=== PATIENT | female | born 1980 | race Caucasian/White ===

== ENCOUNTER 2018-05-26 06:12 | Emergency (ER) | payer OTHER, SELFPAY ==
[2018-05-26 06:15] VITALS: BP 155/106; PULSE 124; RESP 18; TEMP 36.7; O2SAT 97; BMI 32.1
--- NOTE | 2018-05-26 06:48 | ED_ITS ---
HPI - Abdominal Pain <Yumiko Marcano DO - Last Filed: 05/27/18 19:41> General Chief Complaint: Abdominal Pain Stated Complaint: abdominal pain Time Seen by Provider: 05/26/18 06:25 Source: patient Mode of arrival: ambulatory Limitations: no limitations History of Present Illness HPI narrative: Patient is a 37-year-old female presenting with abdominal burning and discomfort ongoing since 06/08 this morning. Woke her from her sleep. It radiates up to her chest starting at her umbilical region. No right upper quadrant pain or lower abdominal pain. No painful frequent urination. She was feeling fine yesterday eating drinking and acting normal. Feeling nauseated at times no vomiting. No changes in bowel habits. MD complaint: abdominal pain Onset (ago): hour(s) (5) Pain Consistency: intermittent Location: periumbilical Severity: mild Quality: burning Radiation: chest Relieving factors: nothing Exacerbating factors: nothing Associated symptoms: nausea Related Data Previous Rx's Medication Instructions Recorded amoxicillin-pot clavulanate 1 tab PO BID #20 tab 05/26/18 [Augmentin] hydrocodone-acetaminophen 1 tab PO Q4-6H PRN #10 tab 05/26/18 ondansetron 4 mg PO TID-QID PRN #10 tab 05/26/18 oxycodone 5 mg PO Q4-6H PRN #10 tab 05/26/18 Allergies Allergy/AdvReac Type Severity Reaction Status Date / Time sodium fluoride Allergy Mild Verified 05/26/18 06:52 Review of Systems <Yumiko Marcano DO - Last Filed: 05/27/18 19:41> Review of Systems GENERAL: Denies chills, fatigue, malaise, fever, sweats, travel HEENT: Denies sinus pain, ear pain, sore throat, difficulty swallowing, neck pain RESPIRATORY: Denies dyspnea, cough, wheezing, hemoptysis, sputum. CARDIOVASCULAR: Denies chest pain, palpitations, orthopnea, edema GASTROINTESTINAL: See HPI : Denies dysuria, frequency, incontinence, hematuria, urinary retention, flank pain. MUSCULOSKELETAL: Denies weakness, joint pain, or bony pain SKIN: No rash, no erythema, no pruritus NEUROLOGIC: Denies weakness, dizziness, headache, numbness, change in speech, confusion PSYCHIATRIC: No concerning psychosocial issues. 12 point review of systems is negative except for those stated above and HPI Exam <Yumiko Marcano DO - Last Filed: 05/27/18 19:41> Initial Vital Signs Initial Vital Signs: Vital Signs Temperature 98.1 F 05/26/18 06:15 Pulse Rate 124 H 05/26/18 06:15 Respiratory Rate 18 05/26/18 06:15 Blood Pressure 155/106 H 05/26/18 06:15 Pulse Oximetry 97 05/26/18 06:15 GENERAL: Well-appearing, well-nourished and in no acute distress. HEENT: Head atraumatic,EOMI, pupils reactive, neck is supple no meningeal signs CARDIOVASCULAR: Regular rate and rhythm without murmurs, rubs or gallops. RESPIRATORY: Breath sounds equal bilaterally, no wheezes rales or rhonchi. ABDOMEN: Soft, mild periumbilical pain no guarding no rebound negative Dow sign no lower abdominal discomfort : No CVA tenderness EXTREMITIES: Normal range of motion, no clubbing or edema. Neurovascularly intact NEUROLOGICAL: Alert and oriented x4.Normal gait and speech. Cranial nerves II through XII grossly intact. SKIN: Warm, dry, no laceration, no petechiae, no rashes or lesions. <Elvis Max DO - Last Filed: 05/26/18 10:47> Initial Vital Signs Initial Vital Signs: Vital Signs Temperature 98.1 F 05/26/18 06:15 Pulse Rate 124 H 05/26/18 06:15 Respiratory Rate 18 05/26/18 06:15 Blood Pressure 155/106 H 05/26/18 06:15 Pulse Oximetry 97 05/26/18 06:15 Course <Yumiko Marcano DO - Last Filed: 05/27/18 19:41> Orders Ordered: Discontinued Medications Ketorolac Tromethamine (Toradol) 30 mg IV NOW ONE Stop: 05/26/18 06:41 Last Admin: 05/26/18 06:49 Dose: 30 mg Ondansetron HCl (Zofran) 4 mg IV NOW ONE Stop: 05/26/18 06:41 Last Admin: 05/26/18 06:49 Dose: 4 mg Pantoprazole Sodium (Protonix) 40 mg IV NOW ONE Stop: 05/26/18 06:41 Last Admin: 05/26/18 06:49 Dose: 40 mg Vital Signs - 8 hr 05/26/18 06:15 05/26/18 07:27 05/26/18 07:58 Temperature 98.1 F Pulse Rate 124 H 98 H 92 H Respiratory Rate 18 16 16 Blood Pressure 155/106 H Blood Pressure [Left Arm] 146/101 H 138/86 Pulse Oximetry 97 97 99 05/26/18 09:00 05/26/18 09:39 Temperature Pulse Rate 85 91 H Respiratory Rate Blood Pressure Blood Pressure [Left Arm] 130/84 131/90 Pulse Oximetry 99 97 <Elvis Max DO - Last Filed: 05/26/18 10:47> Course Narrative: patient received in sign out from Dr. Marcano, I've performed an independent history and physical. CT is ordered Orders Ordered: Discontinued Medications Ketorolac Tromethamine (Toradol) 30 mg IV NOW ONE Stop: 05/26/18 06:41 Last Admin: 05/26/18 06:49 Dose: 30 mg Ondansetron HCl (Zofran) 4 mg IV NOW ONE Stop: 05/26/18 06:41 Last Admin: 05/26/18 06:49 Dose: 4 mg Pantoprazole Sodium (Protonix) 40 mg IV NOW ONE Stop: 05/26/18 06:41 Last Admin: 05/26/18 06:49 Dose: 40 mg Vital Signs - 8 hr 05/26/18 06:15 05/26/18 07:27 05/26/18 07:58 Temperature 98.1 F Pulse Rate 124 H 98 H 92 H Respiratory Rate 18 16 16 Blood Pressure 155/106 H Blood Pressure [Left Arm] 146/101 H 138/86 Pulse Oximetry 97 97 99 05/26/18 09:00 05/26/18 09:39 Temperature Pulse Rate 85 91 H Respiratory Rate Blood Pressure Blood Pressure [Left Arm] 130/84 131/90 Pulse Oximetry 99 97 MDM - Abdominal Pain <Yumiko Marcano DO - Last Filed: 05/27/18 19:41> Lab Data Result diagrams: 05/26/18 06:26 05/26/18 06:26 Lab Results 05/26/18 05/26/18 Range/Units 06:26 06:26 WBC 21.3 H (4.5-11.0) X10^3/uL RBC 5.51 H (4.0-5.2) X10^6/uL Hgb 16.4 H (12.0-16.0) g/dL Hct 48.7 H (36-46) % MCV 88.5 (80-100) fL MCH 29.7 (26-34) PG MCHC 33.6 (30-36) % RDW 12.4 (11.6-14.8) % Plt Count 423 H (150-400) X10^3/uL Neut % (Auto) Not Reportable Lymph % (Auto) Not Reportable [place] % (Auto) Not Reportable Eos % (Auto) Not Reportable Baso % (Auto) Not Reportable Lymph # (Auto) Not Reportable [place] # (Auto) Not Reportable Baso # (Auto) Not Reportable Total Counted 100 Seg Neutrophils % 71.0 H (38-70) % Band Neutrophils % 2.0 L (3-7) % Lymphocytes % (Manual) 19.0 L (25-45) % Atypical Lymphs % 3.0 H ( - 0) % Monocytes % (Manual) 2.0 (2-11) % Eosinophils % (Manual) 3.0 (2-4) % Neutrophils # (Manual) 49364 H (2684-5271) /uL RBC Morphology Normal morphology Sodium 139 (137-145) mmol/L Potassium 4.4 (3.4-5.1) mmol/L Chloride 106 (98-107) mmol/L Carbon Dioxide 21 L (22-32) mmol/L BUN 9 (7-17) mg/dL Creatinine 0.60 (0.52-1.04) mg/dL Estimated GFR > 60.0 (>60) mL/min BUN/Creatinine Ratio 15.0 (6-22) Glucose 113 H (70-100) mg/dL Calcium 9.1 (8.4-10.2) mg/dL Total Bilirubin 1.0 (0.2-1.3) mg/dL AST 22 (14-36) IU/L ALT 16 (9-52) IU/L Alkaline Phosphatase 71 (38-126) U/L Total Protein 7.5 (6.3-8.2) g/dL Albumin 4.3 (3.5-5.0) g/dL Globulin 3.2 (1.7-4.1) g/dL Albumin/Globulin Ratio 1.3 (1.0-2.8) Lipase 32 (23-300) U/L Point of care testing: Point of Care Testing Test Results Negative Urine Dip Bedside Urine Glucose Negative Bedside Urine Bilirubin + 1 Bedside Urine Ketone - Negative Urine Specific [place] 1.015 Bedside Urine Occult Blood + Bedside Urine pH 6.5 Bedside Urine Protein +/- 15 Bedside Urine Urobilinogen - Negative Bedside Urine Nitrite - Negative Bedside Urine Leukocytes - Negative Esterase MDM Narrative Medical decision making narrative: Patient signed out to Dr. Max for further management evaluation. <Elvis Max, DO - Last Filed: 05/26/18 10:47> Differential Diagnosis Differential diagnosis: Likely abdominal pain and acute appendicitis Medical Records Attestation: I reviewed the patient's medical records. Lab Data Attestation: I reviewed the patient's lab results. Lab Results 05/26/18 05/26/18 Range/Units 06:26 06:26 WBC 21.3 H (4.5-11.0) X10^3/uL RBC 5.51 H (4.0-5.2) X10^6/uL Hgb 16.4 H (12.0-16.0) g/dL Hct 48.7 H (36-46) % MCV 88.5 (80-100) fL MCH 29.7 (26-34) PG MCHC 33.6 (30-36) % RDW 12.4 (11.6-14.8) % Plt Count 423 H (150-400) X10^3/uL Neut % (Auto) Not Reportable Lymph % (Auto) Not Reportable [place] % (Auto) Not Reportable Eos % (Auto) Not Reportable Baso % (Auto) Not Reportable Lymph # (Auto) Not Reportable [place] # (Auto) Not Reportable Baso # (Auto) Not Reportable Total Counted 100 Seg Neutrophils % 71.0 H (38-70) % Band Neutrophils % 2.0 L (3-7) % Lymphocytes % (Manual) 19.0 L (25-45) % Atypical Lymphs % 3.0 H ( - 0) % Monocytes % (Manual) 2.0 (2-11) % Eosinophils % (Manual) 3.0 (2-4) % Neutrophils # (Manual) 49238 H (9061-5353) /uL RBC Morphology Normal morphology Sodium 139 (137-145) mmol/L Potassium 4.4 (3.4-5.1) mmol/L Chloride 106 (98-107) mmol/L Carbon Dioxide 21 L (22-32) mmol/L BUN 9 (7-17) mg/dL Creatinine 0.60 (0.52-1.04) mg/dL Estimated GFR > 60.0 (>60) mL/min BUN/Creatinine Ratio 15.0 (6-22) Glucose 113 H (70-100) mg/dL Calcium 9.1 (8.4-10.2) mg/dL Total Bilirubin 1.0 (0.2-1.3) mg/dL AST 22 (14-36) IU/L ALT 16 (9-52) IU/L Alkaline Phosphatase 71 (38-126) U/L Total Protein 7.5 (6.3-8.2) g/dL Albumin 4.3 (3.5-5.0) g/dL Globulin 3.2 (1.7-4.1) g/dL Albumin/Globulin Ratio 1.3 (1.0-2.8) Lipase 32 (23-300) U/L Point of care testing: Point of Care Testing Test Results Negative Urine Dip Bedside Urine Glucose Negative Bedside Urine Bilirubin + 1 Bedside Urine Ketone - Negative Urine Specific [place] 1.015 Bedside Urine Occult Blood + Bedside Urine pH 6.5 Bedside Urine Protein +/- 15 Bedside Urine Urobilinogen - Negative Bedside Urine Nitrite - Negative Bedside Urine Leukocytes - Negative Esterase Imaging Data US - abdomen: Radiologist's impression: [place] [address] Ultrasound Report Signed Patient: Jenna Morris MR#: [id number] : 1980 Acct:[id number] Age/Sex: 37 / F Date of Service: 05/26/18 Loc: ED Accession Number: [id number] Procedure: US abdomen complete Ordering Provider: Elvis Max D.O. PROCEDURE: US ABDOMEN COMPLETE INDICATIONS: severe RUQ pain, WBC 21,000 TECHNIQUE: Real-time scanning was performed of the abdominal and retroperitoneal organs, with image documentation. COMPARISON: None. FINDINGS: Liver: Liver is normal in size and homogeneous in echotexture. Gallbladder: Gallbladder is sonographically normal. No gallstones. No gallbladder wall thickening. No pericholecystic fluid. No sonographic Dow sign. Biliary ducts: Intrahepatic bile ducts are non-dilated. Extrahepatic bile duct caliber measures 5.0 mm. Normal is 6-7 mm or less in diameter, or 10 mm or less post-cholecystectomy. Pancreas: Visualized portions of the pancreas are sonographically normal. Tail of the pancreas is not well-visualized due to bowel gas and cannot be evaluated. Spleen: Spleen is normal in size and homogeneous in echotexture. Kidneys: Kidneys are normal in size and echotexture. Right kidney measures 10.5 cm long; left kidney measures 11.1 cm long. No hydronephrosis or nephrolithiasis. No solid masses. Aorta: Visualized aorta is normal in caliber at less than 3 cm. Iliacs: Not visualized due to bowel gas and cannot be evaluated. IVC: Intrahepatic inferior vena cava is patent. Miscellaneous: No free abdominal fluid. IMPRESSION: Normal abdominal sonogram. Dictated by: Marva Lyons MD, PhD on 05/26/2018 at 8:54 Approved by: Marva Lyons MD, PhD on 05/26/2018 at 8:55 CT scan - abdomen: Radiologist's impression: PROCEDURE: CT ABDOMEN PELVIS W CON INDICATIONS: severe abd pain, WBC 81686 TECHNIQUE: After the administration of intravenous contrast, 5 mm thick sections acquired from the diaphragm to the symphysis. 5 mm coronal and sagittal reformats were acquired. For radiation dose reduction, the following was used: automated exposure control, adjustment of mA and/or kV according to patient size. COMPARISON: None. FINDINGS: Image quality: Excellent. ABDOMEN: Lung bases: Lung bases are clear. Heart size is normal. Solid organs: Liver is normal in size and enhancement. Gallbladder is within normal limits. Biliary system is non dilated. Pancreas enhances normally. Spleen is normal in size and enhancement. No adrenal nodules. Kidneys demonstrate normal size and enhancement, without hydronephrosis. Peritoneum and bowel: Circumferential wall thickening involving a loop of mid ileum is noted. Inflammatory changes are noted in the mesentery adjacent to the circumferential wall thickening involving loops of mid ileum. Moderate amount of free fluid is noted in the lower pelvis. No free fluid or air. The appendix is normal. Nodes and vessels: No retroperitoneal or mesenteric adenopathy by size criteria. Aorta and inferior vena cava are normal in size. Miscellaneous: No ventral hernias. PELVIS: Genitourinary: Bladder wall thickness is normal. Miscellaneous: No inguinal hernias or adenopathy. Bones: No suspicious bony lesions. No vertebral body compression fractures. IMPRESSION: 1. Circumferential wall thickening involving loops of mid ileum compatible with nonspecific enteritis. Differential diagnosis includes infectious or inflammatory process versus less likely ischemic or neoplastic etiologies. 2. Moderate amount of free fluid in the lower pelvis. No free intraperitoneal air. 3. No dilated loops of bowel identified in the current study that would suggest obstruction. Dictated by: Marva Lyons MD, PhD on 05/26/2018 at 9:01 Approved by: Marva Lyons MD, PhD on 05/26/2018 at 9:18 [facility] Narrative Medical decision making narrative: Multiple etiologies for patient's symptoms considered including: [Appendicitis, gallbladder disease, bowel obstruction, versus other] Patient's symptoms improved or duration of stay with above-stated therapies. Findings and discharge diagnosis discussed with patient/family followed by verbalization of understanding Return precautions discussed with patient/family whom verbalize understanding. Discharge Plan Departure Patient Disposition: Home Clinical Impression: Enteritis Discharge Date/Time: 05/26/18 09:57 Interventions: ED Discharge Assessment Last Done: 05/26/18 09:57 Instructions: DI for Colitis Activity Restrictions/Additional Instructions: 1. Drink plenty of fluids with frequent small sips. 2. For the next 24 hours a clear liquid diet is advised. After that please employ a brat diet which would include bananas, rice, apples, toast. 3. Please take medications as directed. 4. Please follow-up with your doctor in the next 1-2 days. Call the office for an appointment. 5. Please return to the emergency Department for any worsening or persistent symptoms, such as increasing pain or fever. Prescriptions: New amoxicillin-pot clavulanate [Augmentin] 875-125 mg tablet 1 tab PO BID Qty: 20 RF: 0 hydrocodone-acetaminophen 5-325 mg tablet 1 tab PO Q4-6H PRN (Reason: pain) Qty: 10 RF: 0 oxycodone 5 mg tablet 5 mg PO Q4-6H PRN (Reason: pain) Qty: 10 RF: 0 ondansetron 4 mg tablet,disintegrating 4 mg PO TID-QID PRN (Reason: nausea and vomiting) Qty: 10 RF: 0
[2018-05-26] MEDS: PANTOPRAZOLE 40 MG VIAL IV (06:49)
[2018-05-26] MEDS: KETOROLAC 60 MG/2 ML VIAL 30 MG IV (06:49)
[2018-05-26] MEDS: ONDANSETRON 4 MG/2 ML INJ IV (06:49)
[2018-05-26 07:02] LABS: Alanine Aminotransferase 16 IU/L (9-52); Albumin 4.3 g/dL (3.5-5.0); Albumin Globulin Ratio 1.3 (1.0-2.8); Alkaline Phosphatase 71 U/L (38-126); Aspartate Aminotransferase 22 IU/L (14-36); Blood Urea Nitrogen 9 mg/dL (7-17); Calcium 9.1 mg/dL (8.4-10.2); Carbon Dioxide 21 mmol/L (22-32); Chloride 106 mmol/L (98-107); Estimated Glomerular Filt Rate > 60.0 mL/min (>60); Globulin 3.2 g/dL (1.7-4.1); Glucose 113 mg/dL (70-100); HEMOLYSIS 30 (0-50); Lipase 32 U/L (23-300); Potassium 4.4 mmol/L (3.4-5.1); Sodium 139 mmol/L (137-145); Total Protein 7.5 g/dL (6.3-8.2)
[2018-05-26 07:12] LABS: Hematocrit 48.7 % (36-46); Hemoglobin 16.4 g/dL (12.0-16.0); Mean Corpuscular HGB Conc 33.6 % (30-36); Mean Corpuscular Hemoglobin 29.7 PG (26-34); Mean Corpuscular Volume 88.5 fL (80-100); Platelet Count 423 X10^3/uL (150-400); Red Blood Cell Count 5.51 X10^6/uL (4.0-5.2); Red Cell Distribution Width 12.4 % (11.6-14.8)
[2018-05-26 07:14] LABS: Add Manual Diff / Slide Review YES; White Blood Cell Count 21.3 X10^3/uL (4.5-11.0)
[2018-05-26 07:27] VITALS: BP 146/101; PULSE 98; RESP 16; O2SAT 97
--- NOTE | 2018-05-26 07:31 | DI.US.S_ITS ---
PROCEDURE: US ABDOMEN COMPLETE INDICATIONS: severe RUQ pain, WBC 21,000 TECHNIQUE: Real-time scanning was performed of the abdominal and retroperitoneal organs, with image documentation. COMPARISON: None. FINDINGS: Liver: Liver is normal in size and homogeneous in echotexture. Gallbladder: Gallbladder is sonographically normal. No gallstones. No gallbladder wall thickening. No pericholecystic fluid. No sonographic Dow sign. Biliary ducts: Intrahepatic bile ducts are non-dilated. Extrahepatic bile duct caliber measures 5.0 mm. Normal is 6-7 mm or less in diameter, or 10 mm or less post-cholecystectomy. Pancreas: Visualized portions of the pancreas are sonographically normal. Tail of the pancreas is not well-visualized due to bowel gas and cannot be evaluated. Spleen: Spleen is normal in size and homogeneous in echotexture. Kidneys: Kidneys are normal in size and echotexture. Right kidney measures 10.5 cm long; left kidney measures 11.1 cm long. No hydronephrosis or nephrolithiasis. No solid masses. Aorta: Visualized aorta is normal in caliber at less than 3 cm. Iliacs: Not visualized due to bowel gas and cannot be evaluated. IVC: Intrahepatic inferior vena cava is patent. Miscellaneous: No free abdominal fluid. IMPRESSION: Normal abdominal sonogram. Dictated by: Marva Lyons MD, PhD on 05/26/2018 at 8:54 Approved by: Marva Lyons MD, PhD on 05/26/2018 at 8:55
[2018-05-26 07:47] LABS: Neutrophils Absolute Manual 15549 /uL (3000-5900); Total Cells Counted 100
[2018-05-26 07:48] LABS: RBC Morphology Normal Morphology
[2018-05-26 07:58] VITALS: BP 138/86; PULSE 92; RESP 16; O2SAT 99
--- NOTE | 2018-05-26 08:35 | DI.CT.S_ITS ---
PROCEDURE: CT ABDOMEN PELVIS W CON INDICATIONS: severe abd pain, WBC 46423 TECHNIQUE: After the administration of intravenous contrast, 5 mm thick sections acquired from the diaphragm to the symphysis. 5 mm coronal and sagittal reformats were acquired. For radiation dose reduction, the following was used: automated exposure control, adjustment of mA and/or kV according to patient size. COMPARISON: None. FINDINGS: Image quality: Excellent. ABDOMEN: Lung bases: Lung bases are clear. Heart size is normal. Solid organs: Liver is normal in size and enhancement. Gallbladder is within normal limits. Biliary system is non dilated. Pancreas enhances normally. Spleen is normal in size and enhancement. No adrenal nodules. Kidneys demonstrate normal size and enhancement, without hydronephrosis. Peritoneum and bowel: Circumferential wall thickening involving a loop of mid ileum is noted. Inflammatory changes are noted in the mesentery adjacent to the circumferential wall thickening involving loops of mid ileum. Moderate amount of free fluid is noted in the lower pelvis. No free fluid or air. The appendix is normal. Nodes and vessels: No retroperitoneal or mesenteric adenopathy by size criteria. Aorta and inferior vena cava are normal in size. Miscellaneous: No ventral hernias. PELVIS: Genitourinary: Bladder wall thickness is normal. Miscellaneous: No inguinal hernias or adenopathy. Bones: No suspicious bony lesions. No vertebral body compression fractures. IMPRESSION: 1. Circumferential wall thickening involving loops of mid ileum compatible with nonspecific enteritis. Differential diagnosis includes infectious or inflammatory process versus less likely ischemic or neoplastic etiologies. 2. Moderate amount of free fluid in the lower pelvis. No free intraperitoneal air. 3. No dilated loops of bowel identified in the current study that would suggest obstruction. Dictated by: Marva Lyons MD, PhD on 05/26/2018 at 9:01 Approved by: Marva Lyons MD, PhD on 05/26/2018 at 9:18
[2018-05-26 09:00] VITALS: BP 130/84; PULSE 85; O2SAT 99
[2018-05-26 09:39] VITALS: BP 131/90; PULSE 91; O2SAT 97
== END 2018-05-26 09:57 | disposition home or self-care (01) ==
PROVIDERS: Emergency Medicine; Emergency Provider Emergency Medicine
DX: K52.9 Noninfective gastroenteritis and colitis, unspecified (principal)
CPT/HCPCS: 36591; 74177; 76700; 80053; 81003; 81025; 83690; 85025; 96374; 96375; 99283; 99285; C9113; J1885; J2405; Q9967

== ENCOUNTER 2018-08-09 03:21 | Emergency (ER) | payer OTHER, SELFPAY ==
[2018-08-09 03:25] VITALS: BP 143/97; PULSE 103; RESP 18; TEMP 36.8; O2SAT 98; BMI 32.9
--- NOTE | 2018-08-09 03:37 | ED.ABDPAIN ---
HPI - Abdominal Pain General Chief Complaint: Abdominal Pain Stated Complaint: abdominal pain Time Seen by Provider: 08/09/18 03:26 Source: patient Mode of arrival: ambulatory Limitations: no limitations History of Present Illness HPI narrative: [age] female nonsmoker with history of enteritis presents to the emergency department with generalized abdominal pain and diarrhea since 04/08 last night. She states it feels very similar to when she was here in May with enteritis. She has an appointment with gastroenterology for wyatt endoscopy next week Related Data Previous Rx's Medication Instructions Recorded amoxicillin-pot clavulanate 1 tab PO BID #20 tab 05/26/18 [Augmentin] hydrocodone-acetaminophen 1 tab PO Q4-6H PRN #10 tab 05/26/18 ondansetron 4 mg PO TID-QID PRN #10 tab 05/26/18 oxycodone 5 mg PO Q4-6H PRN #10 tab 05/26/18 hyoscyamine sulfate 0.125 mg PO BID-QID PRN #20 tab 08/09/18 ketorolac 10 mg PO Q6H PRN 3 Days tab 08/09/18 Allergies Allergy/AdvReac Type Severity Reaction Status Date / Time sodium fluoride Allergy Mild Verified 05/26/18 06:52 Review of Systems Constitutional Denies chills, Denies fever(s), Denies lethargy and Denies weakness Eyes Denies change in vision, Denies eye discharge, Denies irritation and Denies loss of vision ENT Ears, Nose, Mouth, and Throat: Denies change in voice, Denies neck pain and Denies sore throat Cardiovascular Denies chest pain, Denies irregular heart rhythm, Denies lightheadedness, Denies palpitations, Denies dyspnea, Denies dyspnea on exertion and Denies orthopnea Respiratory Denies cough, Denies dyspnea, Denies dyspnea on exertion and Denies wheezing Gastrointestinal Gastrointestinal: Reports abdominal pain, Denies change in bowel habits, Reports diarrhea, Denies nausea and Denies vomiting Genitourinary Denies hematuria, Denies flank pain, Denies urinary incontinence and Denies urinary urgency Musculoskeletal Denies neck pain Integumentary/Breasts Denies pruritus, Denies erythema, Denies rash and Denies wounds Neurologic Denies confusion, Denies loss of vision and Denies weakness Psychiatric Denies anxiety, Denies confusion, Denies depression, Denies homicidal ideation and Denies suicidal ideation Endocrine Denies palpitations Hematologic/Lymphatic Denies easy bruising Allergic/Immunologic Denies wheezing PFSH Medical History Hypertension (Acute) Migraine (Acute) Social History Smoking Status: Never smoker Social History Smoking Status: Never smoker Exam Narrative Exam Narrative: GENERAL: 38-year-old female appears stated age, clearly uncomfortable and massaging her belly HEAD: Atraumatic. Normocephalic. No temporal or scalp tenderness. EYES: Pupils equal round and reactive. Extraocular motions intact. No scleral icterus. No injection or drainage. ENT: Nose without bleeding, purulent drainage or septal hematoma. Throat without erythema, tonsillar hypertrophy or exudate. Uvula midline. Airway patent. NECK: Trachea midline. No JVD or lymphadenopathy. Supple, nontender, no meningeal signs. CARDIOVASCULAR: Regular rate and rhythm without murmurs, gallops, or rubs. RESPIRATORY: Clear to auscultation. Breath sounds equal bilaterally. No wheezes, rales, or rhonchi. GASTROINTESTINAL: Abdomen soft, generalized tenderness, nondistended. No hepato-splenomegaly, or palpable masses. No guarding. EXTREMITIES: No clubbing, cyanosis, or edema. No joint tenderness, effusion, or edema noted. BACK: Nontender without deformity or crepitance. No flank tenderness. NEURO: AOx3. SKIN: No rash or erythema. Initial Vital Signs Initial Vital Signs: Vital Signs Temperature 98.3 F 08/09/18 03:25 Pulse Rate 103 H 08/09/18 03:25 Respiratory Rate 18 08/09/18 03:25 Blood Pressure 143/97 H 08/09/18 03:25 Pulse Oximetry 98 08/09/18 03:25 Course Orders Ordered: ED Orders 08/09/18 03:48 Complete Blood Count AUTO DIFF Stat Comprehensive Metabolic Panel Stat Lipase Stat 08/09/18 03:54 Urine Culture Stat Urine Microscopic Stat Discontinued Medications Sodium Chloride (Normal Saline 0.9%) 1,000 mls @ 1,000 mls/hr IV BOLUS ONE Stop: 08/09/18 04:30 Last Infusion: 08/09/18 04:43 Dose: 0 mls/hr Admin: 08/09/18 03:48 Dose: 1,000 mls/hr Ketorolac Tromethamine (Toradol) 15 mg IV NOW ONE Stop: 08/09/18 03:43 Last Admin: 08/09/18 03:53 Dose: 15 mg Vital Signs - 8 hr 08/09/18 03:25 08/09/18 04:30 Temperature 98.3 F Pulse Rate 103 H 83 Respiratory Rate 18 17 Blood Pressure 143/97 H Blood Pressure [Left Arm] 129/76 Pulse Oximetry 98 99 MDM - Abdominal Pain Lab Data Result diagrams: 08/09/18 03:48 08/09/18 03:48 Lab Results 08/09/18 08/09/18 08/09/18 Range/Units 03:48 03:48 03:54 WBC 17.7 H (4.5-11.0) X10^3/uL RBC 5.03 (4.0-5.2) X10^6/uL Hgb 15.0 (12.0-16.0) g/dL Hct 44.4 (36-46) % MCV 88.2 (80-100) fL MCH 29.7 (26-34) PG MCHC 33.7 (30-36) % RDW 12.2 (11.6-14.8) % Plt Count 361 (150-400) X10^3/uL Neut % (Auto) 72.9 (50-75) % Lymph % (Auto) 19.6 L (25-40) % [place] % (Auto) 5.9 (3-14) % Eos % (Auto) 1.2 L (2-4) % Baso % (Auto) 0.4 (0-2) % Neut # (Auto) 69859 H (7369-9972) /uL Lymph # (Auto) 3500 (1584-9275) /uL [place] # (Auto) 1000 H (0-900) /uL Eos # (Auto) 200 (0-450) /uL Baso # (Auto) 100 (0-100) /uL Sodium 139 (137-145) mmol/L Potassium 4.1 (3.4-5.1) mmol/L Chloride 105 (98-107) mmol/L Carbon Dioxide 24 (22-32) mmol/L BUN 10 (7-17) mg/dL Creatinine 0.60 (0.52-1.04) mg/dL Estimated GFR > 60.0 (>60) mL/min BUN/Creatinine Ratio 16.7 (6-22) Glucose 114 H (70-100) mg/dL Calcium 9.1 (8.4-10.2) mg/dL Total Bilirubin 0.8 (0.2-1.3) mg/dL AST 15 (14-36) IU/L ALT 17 (9-52) IU/L Alkaline Phosphatase 78 (38-126) U/L Total Protein 7.3 (6.3-8.2) g/dL Albumin 4.2 (3.5-5.0) g/dL Globulin 3.1 (1.7-4.1) g/dL Albumin/Globulin Ratio 1.4 (1.0-2.8) Lipase 48 (23-300) U/L Urine RBC 0-1/hpf (0-5/HPF) Urine WBC 1-5/hpf (0-5/HPF) Ur Squamous Epith Cells 1-5 /hpf Urine Bacteria Many (>30) H (None) Ur Culture Indicated? Specimen cultured Micro UA Comment * Point of care testing: Urine Dip Bedside Urine Glucose Negative Bedside Urine Bilirubin + 1 Bedside Urine Ketone - Negative Urine Specific [place] 1.025 Bedside Urine Occult Blood + Bedside Urine pH 6.0 Bedside Urine Protein - Negative Bedside Urine Urobilinogen +/- 1mg Bedside Urine Nitrite - Negative Bedside Urine Leukocytes +/- 15 Esterase MDM Narrative Medical decision making narrative: patient feels much better after the above stated therapies. After lengthy discussion we elected to withhold any advanced imaging in an effort to prevent increased cost and radiation exposure with low likelihood of yield Discharge Plan Departure Patient Disposition: Home Clinical Impression: Abdominal pain Qualifiers: Abdominal location: generalized Qualified Code(s): R10.84 - Generalized abdominal pain Discharge Date/Time: 08/09/18 05:10 Interventions: ED Discharge Assessment Last Done: 08/09/18 05:10 Instructions: DI for Abdominal Pain-Adult Activity Restrictions/Additional Instructions: 1. Drink plenty of fluids with frequent small sips. 2. For the next 24 hours a clear liquid diet is advised. After that please employ a brat diet which would include bananas, rice, apples, toast. 3. Please take medications as directed. 4. Please follow-up with your doctor in the next 1-2 days. Call the office for an appointment. 5. Please return to the emergency Department for any worsening or persistent symptoms, such as increasing pain or fever. Prescriptions: New hyoscyamine sulfate 0.125 mg tablet,disintegrating 0.125 mg PO BID-QID PRN (Reason: dyspepsia) Qty: 20 RF: 0 ketorolac 10 mg tablet 10 mg PO Q6H PRN (Reason: pain) 3 Days RF: 0 No Action amoxicillin-pot clavulanate [Augmentin] 875-125 mg tablet 1 tab PO BID Qty: 20 RF: 0 hydrocodone-acetaminophen 5-325 mg tablet 1 tab PO Q4-6H PRN (Reason: pain) Qty: 10 RF: 0 oxycodone 5 mg tablet 5 mg PO Q4-6H PRN (Reason: pain) Qty: 10 RF: 0 ondansetron 4 mg tablet,disintegrating 4 mg PO TID-QID PRN (Reason: nausea and vomiting) Qty: 10 RF: 0
--- NOTE | 2018-08-09 03:40 | ED_ITS ---
HPI - Abdominal Pain General Chief Complaint: Abdominal Pain Stated Complaint: abdominal pain Time Seen by Provider: 08/09/18 03:26 Source: patient Mode of arrival: ambulatory Limitations: no limitations History of Present Illness HPI narrative: [age] female nonsmoker with history of enteritis presents to the emergency department with generalized abdominal pain and diarrhea since 04/08 last night. She states it feels very similar to when she was here in May with enteritis. She has an appointment with gastroenterology for wyatt endoscopy next week Related Data Previous Rx's Medication Instructions Recorded amoxicillin-pot clavulanate 1 tab PO BID #20 tab 05/26/18 [Augmentin] hydrocodone-acetaminophen 1 tab PO Q4-6H PRN #10 tab 05/26/18 ondansetron 4 mg PO TID-QID PRN #10 tab 05/26/18 oxycodone 5 mg PO Q4-6H PRN #10 tab 05/26/18 hyoscyamine sulfate 0.125 mg PO BID-QID PRN #20 tab 08/09/18 ketorolac 10 mg PO Q6H PRN 3 Days tab 08/09/18 Allergies Allergy/AdvReac Type Severity Reaction Status Date / Time sodium fluoride Allergy Mild Verified 05/26/18 06:52 Review of Systems Constitutional Denies chills, Denies fever(s), Denies lethargy and Denies weakness Eyes Denies change in vision, Denies eye discharge, Denies irritation and Denies loss of vision ENT Ears, Nose, Mouth, and Throat: Denies change in voice, Denies neck pain and Denies sore throat Cardiovascular Denies chest pain, Denies irregular heart rhythm, Denies lightheadedness, Denies palpitations, Denies dyspnea, Denies dyspnea on exertion and Denies orthopnea Respiratory Denies cough, Denies dyspnea, Denies dyspnea on exertion and Denies wheezing Gastrointestinal Gastrointestinal: Reports abdominal pain, Denies change in bowel habits, Reports diarrhea, Denies nausea and Denies vomiting Genitourinary Denies hematuria, Denies flank pain, Denies urinary incontinence and Denies urinary urgency Musculoskeletal Denies neck pain Integumentary/Breasts Denies pruritus, Denies erythema, Denies rash and Denies wounds Neurologic Denies confusion, Denies loss of vision and Denies weakness Psychiatric Denies anxiety, Denies confusion, Denies depression, Denies homicidal ideation and Denies suicidal ideation Endocrine Denies palpitations Hematologic/Lymphatic Denies easy bruising Allergic/Immunologic Denies wheezing PFSH Medical History Hypertension (Acute) Migraine (Acute) Social History Smoking Status: Never smoker Social History Smoking Status: Never smoker Exam Narrative Exam Narrative: GENERAL: 38-year-old female appears stated age, clearly uncomfortable and massaging her belly HEAD: Atraumatic. Normocephalic. No temporal or scalp tenderness. EYES: Pupils equal round and reactive. Extraocular motions intact. No scleral icterus. No injection or drainage. ENT: Nose without bleeding, purulent drainage or septal hematoma. Throat without erythema, tonsillar hypertrophy or exudate. Uvula midline. Airway patent. NECK: Trachea midline. No JVD or lymphadenopathy. Supple, nontender, no menin geal signs. CARDIOVASCULAR: Regular rate and rhythm without murmurs, gallops, or rubs. RESPIRATORY: Clear to auscultation. Breath sounds equal bilaterally. No wheezes, rales, or rhonchi. GASTROINTESTINAL: Abdomen soft, generalized tenderness, nondistended. No hepato- splenomegaly, or palpable masses. No guarding. EXTREMITIES: No clubbing, cyanosis, or edema. No joint tenderness, effusion, or edema noted. BACK: Nontender without deformity or crepitance. No flank tenderness. NEURO: AOx3. SKIN: No rash or erythema. Initial Vital Signs Initial Vital Signs: Vital Signs Temperature 98.3 F 08/09/18 03:25 Pulse Rate 103 H 08/09/18 03:25 Respiratory Rate 18 08/09/18 03:25 Blood Pressure 143/97 H 08/09/18 03:25 Pulse Oximetry 98 08/09/18 03:25 Course Orders Ordered: ED Orders 08/09/18 03:48 Complete Blood Count AUTO DIFF Stat Comprehensive Metabolic Panel Stat Lipase Stat 08/09/18 03:54 Urine Culture Stat Urine Microscopic Stat Discontinued Medications Sodium Chloride (Normal Saline 0.9%) 1,000 mls @ 1,000 mls/hr IV BOLUS ONE Stop: 04/02/19 04:30 Last Infusion: 08/09/18 04:43 Dose: 0 mls/hr Admin: 08/09/18 03:48 Dose: 1,000 mls/hr Ketorolac Tromethamine (Toradol) 15 mg IV NOW ONE Stop: 08/09/18 03:43 Last Admin: 08/09/18 03:53 Dose: 15 mg Vital Signs - 8 hr 08/09/18 03:25 08/09/18 04:30 Temperature 98.3 F Pulse Rate 103 H 83 Respiratory Rate 18 17 Blood Pressure 143/97 H Blood Pressure [Left Arm] 129/76 Pulse Oximetry 98 99 MDM - Abdominal Pain Lab Data Result diagrams: 08/09/18 03:48 08/09/18 03:48 Lab Results 08/09/18 08/09/18 08/09/18 Range/Units 03:48 03:48 03:54 WBC 17.7 H (4.5-11.0) X10^3/uL RBC 5.03 (4.0-5.2) X10^6/uL Hgb 15.0 (12.0-16.0) g/dL Hct 44.4 (36-46) % MCV 88.2 (80-100) fL MCH 29.7 (26-34) PG MCHC 33.7 (30-36) % RDW 12.2 (11.6-14.8) % Plt Count 361 (150-400) X10^3/uL Neut % (Auto) 72.9 (50-75) % Lymph % (Auto) 19.6 L (25-40) % [place] % (Auto) 5.9 (3-14) % Eos % (Auto) 1.2 L (2-4) % Baso % (Auto) 0.4 (0-2) % Neut # (Auto) 50719 H (3755-7078) /uL Lymph # (Auto) 3500 (2400-9392) /uL [place] # (Auto) 1000 H (0-900) /uL Eos # (Auto) 200 (0-450) /uL Baso # (Auto) 100 (0-100) /uL Sodium 139 (137-145) mmol/L Potassium 4.1 (3.4-5.1) mmol/L Chloride 105 (98-107) mmol/L Carbon Dioxide 24 (22-32) mmol/L BUN 10 (7-17) mg/dL Creatinine 0.60 (0.52-1.04) mg/dL Estimated GFR > 60.0 (>60) mL/min BUN/Creatinine Ratio 16.7 (6-22) Glucose 114 H (70-100) mg/dL Calcium 9.1 (8.4-10.2) mg/dL Total Bilirubin 0.8 (0.2-1.3) mg/dL AST 15 (14-36) IU/L ALT 17 (9-52) IU/L Alkaline Phosphatase 78 (38-126) U/L Total Protein 7.3 (6.3-8.2) g/dL Albumin 4.2 (3.5-5.0) g/dL Globulin 3.1 (1.7-4.1) g/dL Albumin/Globulin Ratio 1.4 (1.0-2.8) Lipase 48 (23-300) U/L Urine RBC 0-1/hpf (0-5/HPF) Urine WBC 1-5/hpf (0-5/HPF) Ur Squamous Epith Cells 1-5 /hpf Urine Bacteria Many (>30) H (None) Ur Culture Indicated? Specimen cultured Micro UA Comment * Point of care testing: Urine Dip Bedside Urine Glucose Negative Bedside Urine Bilirubin + 1 Bedside Urine Ketone - Negative Urine Specific [place] 1.025 Bedside Urine Occult Blood + Bedside Urine pH 6.0 Bedside Urine Protein - Negative Bedside Urine Urobilinogen +/- 1mg Bedside Urine Nitrite - Negative Bedside Urine Leukocytes +/- 15 Esterase MDM Narrative Medical decision making narrative: patient feels much better after the above stated therapies. After lengthy discussion we elected to withhold any advanced imaging in an effort to prevent increased cost and radiation exposure with low likelihood of yield Discharge Plan Departure Patient Disposition: Home Clinical Impression: Abdominal pain Qualifiers: Abdominal location: generalized Qualified Code(s): R10.84 - Generalized abdominal pain Discharge Date/Time: 08/09/18 05:10 Interventions: ED Discharge Assessment Last Done: 08/09/18 05:10 Instructions: DI for Abdominal Pain-Adult Activity Restrictions/Additional Instructions: 1. Drink plenty of fluids with frequent small sips. 2. For the next 24 hours a clear liquid diet is advised. After that please e mploy a brat diet which would include bananas, rice, apples, toast. 3. Please take medications as directed. 4. Please follow-up with your doctor in the next 1-2 days. Call the office for an appointment. 5. Please return to the emergency Department for any worsening or persistent symptoms, such as increasing pain or fever. Prescriptions: New hyoscyamine sulfate 0.125 mg tablet,disintegrating 0.125 mg PO BID-QID PRN (Reason: dyspepsia) Qty: 20 RF: 0 ketorolac 10 mg tablet 10 mg PO Q6H PRN (Reason: pain) 3 Days RF: 0 No Action amoxicillin-pot clavulanate [Augmentin] 875-125 mg tablet 1 tab PO BID Qty: 20 RF: 0 hydrocodone-acetaminophen 5-325 mg tablet 1 tab PO Q4-6H PRN (Reason: pain) Qty: 10 RF: 0 oxycodone 5 mg tablet 5 mg PO Q4-6H PRN (Reason: pain) Qty: 10 RF: 0 ondansetron 4 mg tablet,disintegrating 4 mg PO TID-QID PRN (Reason: nausea and vomiting) Qty: 10 RF: 0
[2018-08-09] MEDS: SODIUM CHLORIDE 0.9% 1,000 ML 1000 ML IV (03:48)
[2018-08-09] MEDS: KETOROLAC 60 MG/2 ML VIAL 15 MG IV (03:53)
[2018-08-09 04:00] LABS: Add Manual Diff / Slide Review NO; Basophils Absolute Auto 100 /uL (0-100); Basophils Percent Auto 0.4 % (0-2); Eosinophils Absolute Auto 200 /uL (0-450); Eosinophils Percent Auto 1.2 % (2-4); Hematocrit 44.4 % (36-46); Lymphocytes Absolute Auto 3500 /uL (1100-4500); Lymphocytes Percent Auto 19.6 % (25-40); Mean Corpuscular HGB Conc 33.7 % (30-36); Mean Corpuscular Hemoglobin 29.7 PG (26-34); Mean Corpuscular Volume 88.2 fL (80-100); Monocytes Absolute Auto 1000 /uL (0-900); Monocytes Percent Auto 5.9 % (3-14); Neutrophils Absolute Auto 12900 /uL (1500-7000); Neutrophils Percent Auto 72.9 % (50-75); Platelet Count 361 X10^3/uL (150-400); Red Blood Cell Count 5.03 X10^6/uL (4.0-5.2); Red Cell Distribution Width 12.2 % (11.6-14.8); White Blood Cell Count 17.7 X10^3/uL (4.5-11.0)
[2018-08-09 04:06] LABS: Alanine Aminotransferase 17 IU/L (9-52); Albumin 4.2 g/dL (3.5-5.0); Albumin Globulin Ratio 1.4 (1.0-2.8); Alkaline Phosphatase 78 U/L (38-126); Aspartate Aminotransferase 15 IU/L (14-36); BUN Creatinine Ratio 16.7 (6-22); Bilirubin Total 0.8 mg/dL (0.2-1.3); Blood Urea Nitrogen 10 mg/dL (7-17); Calcium 9.1 mg/dL (8.4-10.2); Carbon Dioxide 24 mmol/L (22-32); Chloride 105 mmol/L (98-107); Estimated Glomerular Filt Rate > 60.0 mL/min (>60); Globulin 3.1 g/dL (1.7-4.1); Glucose 114 mg/dL (70-100); HEMOLYSIS < 15 (0-50); Lipase 48 U/L (23-300); Potassium 4.1 mmol/L (3.4-5.1); Sodium 139 mmol/L (137-145); Total Protein 7.3 g/dL (6.3-8.2)
[2018-08-09 04:30] VITALS: BP 129/76; PULSE 83; RESP 17; O2SAT 99
[2018-08-09 04:33] LABS: RBC Urine 0-1/HPF (0-5/HPF)
[2018-08-09 04:34] LABS: Bacteria Urine Many (>30); Squamous Epithelial Cell Urine 1-5 /HPF; WBC Urine 1-5/HPF (0-5/HPF)
[2018-08-09 04:38] LABS: Culture Indicated Urine Specimen Cultured
== END 2018-08-09 05:10 | disposition home or self-care (01) ==
PROVIDERS: Emergency Provider Emergency Medicine
DX: R10.84 Generalized abdominal pain (principal); R19.7 Diarrhea, unspecified
CPT/HCPCS: 36591; 80053; 81003; 81015; 83690; 85025; 87086; 96361; 96374; 99283; 99284; J1885

== ENCOUNTER → 2018-09-30 12:33 | Outpatient (CLI) | payer OTHER, SELFPAY ==
--- NOTE | 2018-09-30 | DI.RAD.S_ITS ---
PROCEDURE: XR KUB INDICATIONS: Foreign body in small intestine, initial encounter TECHNIQUE: One view of the abdomen acquired. COMPARISON: [facility], CT, CT ABDOMEN PELVIS W CON, 05/26/2018, 8:39. FINDINGS: Surgical changes and devices: None. Bowel: The rectangular shaped radiodensity measuring about 2.2 cm is present in the right lower quadrant of the abdomen, potentially within the cecum or at the ileocecal valve. Bowel gas pattern is nonobstructive. Soft tissues: No suspicious abdominal calcifications. Visualized solid organ contours appear normal in size. Bones: No suspicious bony lesions. IMPRESSION: Ingested barium pill is in the right lower quadrant of the abdomen, within the cecum, or as the ileocecal valve. Follow up in 24 hours may be useful to assess for movement. Dictated by: Aubree Bae M.D. on 09/30/2018 at 14:08 Approved by: Aubree Bae M.D. on 09/30/2018 at 14:11
== END ==
PROVIDERS: PCP Family Medicine; Visit Provider Internal Medicine Gastroenterology
DX: T18.3XXA Foreign body in small intestine, initial encounter (principal)
CPT/HCPCS: 74018

== ENCOUNTER 2019-10-05 22:35 | Emergency (ER) | payer OTHER, SELFPAY ==
[2019-10-05 22:46] VITALS: BP 179/100; PULSE 108; RESP 18; TEMP 36.6; O2SAT 97
--- NOTE | 2019-10-05 23:23 | ED.EXTPRO ---
HPI - Extremity Problem General Chief complaint: Extremity Problem,Nontraumatic Stated complaint: Possible allergic reaction to antibiotics Time Seen by Provider: 10/05/19 23:23 Source: patient Mode of arrival: Ambulatory Limitations: no limitations History of Present Illness HPI Narrative: The patient sustained a mosquito bite to the left elbow with Ayde 2 days ago. There was dramatic amount of erythema and edema to the left medial elbow. She still has full range of motion left elbow. There is no numbness or weakness in left hand. She was seen earlier today at a nearby ER, started on Keflex. She has received only 1 dose of Keflex. She is here now with increased redness and swelling at the site. There are no red streaks from the site. She has no fever chills. She is not diabetic. Related Data Previous Rx's Medication Instructions Recorded amoxicillin-pot clavulanate 1 tab PO BID #20 tab 05/26/18 [Augmentin] hydrocodone-acetaminophen 1 tab PO Q4-6H PRN #10 tab 05/26/18 ondansetron 4 mg PO TID-QID PRN #10 tab 05/26/18 oxycodone 5 mg PO Q4-6H PRN #10 tab 05/26/18 hyoscyamine sulfate 0.125 mg PO BID-QID PRN #20 tab 08/09/18 Allergies Allergy/AdvReac Type Severity Reaction Status Date / Time sodium fluoride Allergy Mild Verified 05/26/18 06:52 Review of Systems Review of Systems ROS Unobtainable: All systems reviewed & are unremarkable except as noted in HPI and below Constitutional Constitutional: Denies chills, Denies fever(s), Denies lethargy and Denies weakness Musculoskeletal Comments: Normal range of motion left arm. Integumentary/Breasts Comments: Left elbow erythema with swelling is noted HPI. Neurologic Neurologic: Denies paresthesias and Denies weakness Psychiatric Psychiatric: Denies anxiety Patient History Medical History (Updated 10/06/19 @ 00:44 by Ulices Ortez MD) Hypertension (Acute) Hypertension (Acute) Migraine (Acute) Social History Smoking Status: Never smoker Smoking Status: Never smoker alcohol intake frequency: a few times a month Substance Use Type: does not use Exam Initial Vital Signs Initial Vital Signs: Vital Signs Temperature 97.9 F 10/05/19 22:46 Pulse Rate 108 H 10/05/19 22:46 Respiratory Rate 18 10/05/19 22:46 Blood Pressure 179/100 H 10/05/19 22:46 Pulse Oximetry 97 10/05/19 22:46 Const General: cooperative and well developed Nutritional Appearance: well nourished Skin Other: Erythema with warmth to the left medial elbow as described in HPI. No chronic skin rash. Cellulitis without fluctuance or red streaking. The erythema has spread outside the lines drawn earlier today. Neuro General: alert, oriented x3 and no focal motor deficits Speech: speech normal Extrem General: full ROM Other: Full range of motion the left elbow, the site of infection. Course Course Course Narrative: The patient was given Rocephin IM all here. She has no fever. She has no lymphangitis. She should return here if she develops fever or lymphangitis. Orders Ordered: Discontinued Medications Ceftriaxone Sodium (Rocephin) 1,000 mg IM NOW ONE Stop: 10/05/19 23:37 Ceftriaxone Sodium (Rocephin) 1,000 mg IM NOW ONE Stop: 10/05/19 23:48 Last Admin: 10/06/19 00:30 Dose: 1,000 mg Documented by: NELI Lidocaine HCl (Xylocaine 1%) 4.2 ml INJ NOW ONE Stop: 10/05/19 23:48 Last Admin: 10/06/19 00:29 Dose: 2.1 ml Documented by: NELI Vital Signs Vital signs: Vital Signs - 8 hr 10/05/19 22:46 Temperature 97.9 F Pulse Rate 108 H Respiratory Rate 18 Blood Pressure 179/100 H Pulse Oximetry 97 Discharge Plan Departure Patient Disposition: Home Clinical Impression: Cellulitis of arm, right Instructions: DI for Cellulitis -- Adult Activity Restrictions/Additional Instructions: Continue taking the the prescribed antibiotic, Keflex. You may want apply warm compresses to the left arm infection site a couple times daily. If you have significant increase in redness and swelling, as we discussed, return the ER. More importantly if developed a red streak from the site or developed a fever come to the ER. Prescriptions: No Action hyoscyamine sulfate 0.125 mg tablet,disintegrating 0.125 mg PO BID-QID PRN (Reason: dyspepsia) Qty: 20 RF: 0 amoxicillin-pot clavulanate [Augmentin] 875-125 mg tablet 1 tab PO BID Qty: 20 RF: 0 hydrocodone-acetaminophen 5-325 mg tablet 1 tab PO Q4-6H PRN (Reason: pain) Qty: 10 RF: 0 oxycodone 5 mg tablet 5 mg PO Q4-6H PRN (Reason: pain) Qty: 10 RF: 0 ondansetron 4 mg tablet,disintegrating 4 mg PO TID-QID PRN (Reason: nausea and vomiting) Qty: 10 RF: 0 Referrals: Beckie Pryor DO [Primary Care Provider] -
[2019-10-06] MEDS: LIDOCAINE 1% 20 ML 4.2 ML INJ (00:29)
[2019-10-06] MEDS: cefTRIAXone 2,000 MG VIAL 1000 MG IM (00:30)
--- NOTE | 2019-10-06 00:52 | PC.NURSE ---
PT seen today at [facility], was diagnosed with cellulitis of the left inner arm. Pt states unsure if antibiotics are working. Took first dose of Keflex this evening at 1800.
[2019-10-06 00:56] VITALS: BP 152/91; PULSE 83; RESP 15; O2SAT 100
== END 2019-10-06 00:57 | disposition home or self-care (01) ==
PROVIDERS: Emergency Provider Emergency Medicine; PCP Family Medicine
DX: L03.113 Cellulitis of right upper limb (principal)
CPT/HCPCS: 96372; 99283; J0696

== ENCOUNTER → 2021-02-19 11:23 | Outpatient (CLI) | payer OTHER, SELFPAY ==
--- NOTE | 2021-02-19 | DI.MG.S_ITS ---
BILATERAL DIGITAL SCREENING MAMMOGRAM 3D/2D WITH CAD: 02/19/2021 CLINICAL: Routine screening. Baseline exam. No prior exams were available for comparison. There are scattered fibroglandular elements in both breasts. Current study was also evaluated with a Computer Aided Detection (CAD) system. No significant masses, calcifications, or other findings are seen in either breast. IMPRESSION: NEGATIVE There is no mammographic evidence of malignancy. A 1 year screening mammogram is recommended. This exam was interpreted at Station ID: [id number]. NOTE: For mammograms, a report in lay terms will be sent to the patient. Approximately 15% of breast malignancies will not be visualized mammographically. In the management of a palpable breast mass, a negative mammogram must not discourage biopsy of a clinically suspicious lesion. Electronically Signed By: Tesfaye lion/david:02/19/2021 11:49:09 letter sent: Normal Exam ACR BI-RADS Category 1: Negative [id number]
== END ==
PROVIDERS: PCP Family Medicine; Referring Provider Family Medicine; Visit Provider Family Medicine
DX: Z12.31 Encounter for screening mammogram for malignant neoplasm of breast (principal)
CPT/HCPCS: 77063; 77067

== ENCOUNTER → 2021-09-11 08:19 | Outpatient (CLI) | payer OTHER, SELFPAY ==
--- NOTE | 2021-09-11 | DI.MRI.S_ITS ---
PROCEDURE: MR LUMBAR SPINE WO CON INDICATIONS: Low back pain, unspecified TECHNIQUE: Noncontrast sagittal T1 spin echo and T2 fast echo, sagittal STIR, and T2 fast spin echo through the lumbar spine. In cases with scoliosis, additional coronal T2 fast spin echo may be performed. COMPARISON: None. FINDINGS: Image quality: Excellent. Alignment and Curvature: There is normal bony alignment. Bone Marrow: Marrow is of normal overall signal. No acute vertebral body compression fractures. Spinal Cord: Conus medullaris terminates at the L1 level. Visualized cord demonstrates normal signal and size. Paraspinous Soft Tissues: No paravertebral masses. T12-L1: No canal stenosis or foraminal stenosis. L1-L2: No canal stenosis or foraminal stenosis. L2-L3: Facet hypertrophy. No canal stenosis or foraminal stenosis. L3-L4: Facet hypertrophy. No canal stenosis or foraminal stenosis. L4-L5: Posterior annulus tear. Diffuse disc bulge. Prominent facet hypertrophy. [id number] canal stenosis. Mild bilateral foraminal stenosis. L5-S1: Posterior annulus tear. Disc bulge. Canal stenosis secondary to disc bulge, facet hypertrophy, and epidural lipomatosis. Epidural lipomatosis narrows the thecal sac, giving it a trifoil appearance. No significant foraminal stenosis. IMPRESSION: 1. Multilevel facet arthropathy. 2. There is canal stenosis at L4-L5 and L5-S1. Canal stenosis is mild to moderate at L4-L5. At L5-S1, epidural lipomatosis gives the thecal sac a trifoil appearance. Dictated by: Sea Greenberg M.D. on 09/11/2021 at 9:33 Approved by: Sea Greenberg M.D. on 09/11/2021 at 9:40
== END ==
PROVIDERS: PCP Family Medicine; Referring Provider Family Medicine; Visit Provider Family Medicine
DX: M47.26 Other spondylosis with radiculopathy, lumbar region (principal); M47.27 Other spondylosis with radiculopathy, lumbosacral region; M48.061 Spinal stenosis, lumbar region without neurogenic claudication; M48.07 Spinal stenosis, lumbosacral region; M54.50 Low back pain, unspecified
CPT/HCPCS: 72148

== ENCOUNTER → 2023-09-06 15:54 | Outpatient (CLI) | payer OTHER, SELFPAY ==
--- NOTE | 2023-09-06 15:55 | DI.MRI.S_ITS ---
PROCEDURE: MR LUMBAR SPINE WO CON INDICATIONS: Radiculopathy, lumbar region TECHNIQUE: Noncontrast sagittal T1 spin echo and T2 fast echo, sagittal STIR, and T2 fast spin echo through the lumbar spine. In cases with scoliosis, additional coronal T2 fast spin echo may be performed. COMPARISON: [facility], , MR LUMBAR SPINE WO CON, 09/11/2021, 8:32. FINDINGS: Image quality: Excellent. Alignment and Curvature: Straightening of the normal lumbar lordosis. Minimal levocurvature. Minimal anterolisthesis of L4 on L5. Bone Marrow: Marrow is of normal overall signal. No acute vertebral body compression fractures. Spinal Cord: Conus medullaris terminates at the L1 level. Visualized cord demonstrates normal signal and size. Paraspinous Soft Tissues: No paravertebral masses. T12-L1: Normal appearance. L1-L2: Normal appearance. L2-L3: Facet arthropathy. No central canal or neural foraminal stenosis. L3-L4: Facet arthropathy. Epidural lipomatosis. No central canal or neural foraminal stenosis. L4-L5: Disc desiccation and mild diffuse disc bulge. Facet arthropathy and thickening of ligamentum flavum. Epidural lipomatosis. Moderate central canal stenosis is mildly progressed. Mild bilateral neural foraminal stenosis. L5-S1: No central canal or neural foraminal stenosis. The thecal sac terminates at this level. IMPRESSION: Degenerative changes, most pronounced at L4-5 with moderate central canal stenosis, mildly progressed compared to prior. Stable mild bilateral neural foraminal stenosis. Dictated by: Chad Bustamante M.D. on 09/06/2023 at 16:47 Approved by: Chad Bustamante M.D. on 09/06/2023 at 16:51
== END ==
LOC: MRI 15:55
PROVIDERS: PCP Family Medicine; Referring Provider Family Medicine; Visit Provider Family Medicine
DX: M47.26 Other spondylosis with radiculopathy, lumbar region (principal); M48.061 Spinal stenosis, lumbar region without neurogenic claudication
CPT/HCPCS: 72148

== ENCOUNTER 2024-05-07 10:41 | Emergency (ER) | payer OTHER, SELFPAY ==
[2024-05-07 10:52] VITALS: BP 168/94; PULSE 80; RESP 16; TEMP 36.6; O2SAT 98; BMI 40.2
[2024-05-07 11:17] LABS: Add Manual Diff / Slide Review NO; Basophils Absolute Auto 100 /uL (0-100); Basophils Percent Auto 0.4 % (0-2); Eosinophils Absolute Auto 200 /uL (0-450); Eosinophils Percent Auto 1.4 % (2-4); Hematocrit 42.7 % (36-46); Hemoglobin 14.2 g/dL (12.0-16.0); Lymphocytes Absolute Auto 3500 /uL (1100-4500); Lymphocytes Percent Auto 27.1 % (25-40); Mean Corpuscular HGB Conc 33.3 % (30-36); Mean Corpuscular Volume 87.3 fL (80-100); Monocytes Absolute Auto 700 /uL (0-900); Monocytes Percent Auto 5.3 % (3-14); Neutrophils Absolute Auto 8600 /uL (1500-7000); Neutrophils Percent Auto 65.8 % (50-75); Platelet Count 385 X10^3/uL (150-400); Red Blood Cell Count 4.89 X10^6/uL (4.0-5.2)
[2024-05-07 11:26] LABS: Alanine Aminotransferase 27 IU/L (<35); Albumin 4.4 g/dL (3.5-5.0); Albumin Globulin Ratio 1.5 (1.0-2.8); Alkaline Phosphatase 100 U/L (38-126); Aspartate Aminotransferase 27 IU/L (14-36); BUN Creatinine Ratio 19.7 (6-22); Bilirubin Total 0.7 mg/dL (0.2-1.3); Blood Urea Nitrogen 12 mg/dL (7-17); Carbon Dioxide 20 mmol/L (22-32); Chloride 107 mmol/L (98-107); Estimated Glomerular Filt Rate > 60 mL/min (>60); Glucose 109 mg/dL (70-100); HEMOLYSIS < 15 (0-50); Lipase 47 U/L (23-300); Potassium 4.1 mmol/L (3.4-5.1); Sodium 136 mmol/L (137-145); Total Protein 7.4 g/dL (6.3-8.2)
--- NOTE | 2024-05-07 11:29 | DI.RAD.S_ITS ---
PROCEDURE: XR ACUTE ABDOMEN SERIES INDICATIONS: pain after BM TECHNIQUE: One view chest and two views of the abdomen were acquired. COMPARISON: None. Findings and impression: Chest: Low lung volumes. No dense airspace disease or pleural effusions. No free air under hemidiaphragms. Normal heart size. Unremarkable osseous structures. Abdomen: Moderate fecal loading. No specific signs for bowel obstruction by radiography. No suspicious soft tissue calcifications. Unremarkable osseous structures. Consider CT if there is further concern for acute abdomen. Dictated by: Nima Duran M.D. on 05/07/2024 at 11:04 Approved by: Nima Duran M.D. on 05/07/2024 at 11:05
[2024-05-07 11:39] VITALS: PULSE 85; O2SAT 97
[2024-05-07 11:41] VITALS: BP 137/63; PULSE 85; O2SAT 98
--- NOTE | 2024-05-07 11:43 | ED.ABDPAIN ---
HPI - Abdominal Pain <Alayna Reis PA-C - Last Filed: 05/07/24 13:30> General Chief Complaint: Abdominal Pain Stated Complaint: Severe left side stomach pain Time Seen by Provider: 05/07/24 11:16 History of Present Illness HPI narrative: 43-year-old female presents this morning for left lower quadrant abdominal pain. She states it started about 3 hours ago at 8:00 a.m. in the morning she was already awake at the time. She points to the left lower quadrant and endorsed it radiating around the side to her back she described it as constant at that time but currently she is completely pain-free. On the drive over from home she reported every bump in the road caused her worsening pain. She had a bowel movement this morning she described it as normal, no straining, no mucus, odor, blood or pain. She reported urinating normally but had an episode of nausea which resolved. She does reports some increased hiccuping and burps but no increase in her gas pattern, her diet has been good this holiday season last oral intake was this morning ?radha Revloc's? last full meal was [place] food last night with no issues. She did apply heating pad which seems to help a little bit. History is significant for enteritis colitis in 2018 and 2019 with no underlying cause. She has had no abdominal surgeries other than a hysterectomy in 2019. She had shingles in February of 2024 on the same side but that did resolve. She has hypertension, GERD, hyperlipidemia and takes lisinopril, metoprolol, Prilosec, rosuvastatin, Effexor, vitamin-B complex. No known history of kidney stones. Last CT scan was in 2019 she has had no recurrent of any abdominal issues since that time. All other systems reviewed and are negative. Related Data Home Medications Medication Instructions Recorded Confirmed alprazolam 0.5 mg tablet mg PO 04/23/23 04/23/23 lisinopril 40 mg tablet 40 mg PO DAILY 04/23/23 04/23/23 metoprolol succinate 50 mg 50 mg PO DAILY 04/23/23 04/23/23 tablet,extended release 24 hr omeprazole 20 mg capsule,delayed 20 mg PO DAILY 04/23/23 04/23/23 release rosuvastatin 10 mg tablet 10 mg PO ONCE PM 04/23/23 04/23/23 venlafaxine 37.5 mg 37.5 mg PO BID 04/23/23 04/23/23 capsule,extended release 24 hr Previous Rx's Medication Instructions Recorded doxycycline hyclate 100 mg capsule 100 mg PO BID #10 caps 04/23/23 ciprofloxacin HCl 500 mg tablet 500 mg PO BID #14 tabs 05/07/24 ondansetron 4 mg disintegrating 4 mg PO Q8H PRN nausea and 05/07/24 tablet vomiting #20 tabs Allergies Allergy/AdvReac Type Severity Reaction Status Date / Time amoxicillin Allergy Mild Diarrhea Verified 04/23/23 11:02 sodium fluoride Allergy Mild Verified 04/23/23 11:01 Review of Systems <Alayna Reis PA-C - Last Filed: 05/07/24 13:30> Review of Systems Narrative: All other systems reviewed and are negative. Patient History <Alayna Reis PA-C - Last Filed: 05/07/24 13:30> Medical History Hypertension Hypertension Migraine Social History Smoking Status: Never smoker Smoking Status: Never smoker alcohol intake frequency: a few times a month Exam <Alayna Reis PA-C - Last Filed: 05/07/24 13:30> Initial Vital Signs Initial Vital Signs: Vital Signs Temperature 97.8 F 05/07/24 10:52 Pulse Rate 80 05/07/24 10:52 Respiratory Rate 16 05/07/24 10:52 Blood Pressure 168/94 H 05/07/24 10:52 Pulse Oximetry 98 05/07/24 10:52 Oxygen Delivery Method Room Air 05/07/24 10:52 Vital signs reviewed and are normal except for elevated blood pressure reading in a known hypertension patient Const General: cooperative, healthy appearing, comfortable, well developed, well groomed and No acute distress Other: Ambulatory without difficulty. [facility] Head: normal to inspection and normocephalic Ears: hearing grossly normal bilaterally and external ears normal Nose: external nose normal and nares normal Face and sinus: normal facial exam, sinuses nontender and face symmetric Mouth: oral mucosae normal, lip normal and tongue normal Throat: posterior oropharynx normal Eyes General: Yes appearance normal, both eyes and all related structures Neck Neck: normal visual inspection, full ROM, no meningeal signs, trachea midline and supple Lymphatic: No lymphadenopathy Chest Chest: normal inspection of the chest Resp Effort & Inspection: normal respiratory effort and able to speak in complete sentences Auscultation: clear to auscultation bilaterally, no rales, no rhonchi and no wheezes Cardio Rate: regular rate Rhythm: regular rhythm GI Inspection: normal to inspection, no abdominal wall ecchymosis, no edema and non-distended Palpation: soft and no hepatosplenomegaly Percussion: normal to percussion Auscultation: normal bowel sounds Rectal Exam: visual inspection normal, normal sphincter tone and No abnormal stool Other: Soft light brown stool in the rectal vault, nontender exam. Point of care guaiac exam is negative. Back/Spine/Pelvis Back: normal to inspection and No CVA tenderness Other: No rash. Skin General: no rashes or lesions noted, elasticity normal and turgor normal <DO Louie Perry Last Filed: 05/08/24 09:22> Initial Vital Signs Initial Vital Signs: Vital Signs Temperature 97.8 F 05/07/24 10:52 Pulse Rate 80 05/07/24 10:52 Respiratory Rate 16 05/07/24 10:52 Blood Pressure 168/94 H 05/07/24 10:52 Pulse Oximetry 98 05/07/24 10:52 Oxygen Delivery Method Room Air 05/07/24 10:52 Course <Alayna Reis PA-C - Last Filed: 05/07/24 13:30> Orders Ordered: Discontinued Medications Ondansetron HCl (Ondansetron 4 Mg/2 Ml Inj) 4 mg IV NOW PRN PRN Reason: Nausea And Vomiting Ondansetron HCl (Ondansetron 4 Mg Odt) 4 mg PO NOW PRN PRN Reason: Nausea And Vomiting Vital Signs Vital signs: Vital Signs - 8 hr 05/07/24 10:52 05/07/24 11:39 05/07/24 11:41 Temperature 97.8 F Pulse Rate 80 85 Respiratory Rate 16 Blood Pressure 168/94 H 137/63 Pulse Oximetry 98 97 Oxygen Delivery Method Room Air 05/07/24 11:41 05/07/24 12:00 05/07/24 12:30 Temperature Pulse Rate 85 83 83 Respiratory Rate Blood Pressure Pulse Oximetry 98 97 97 Oxygen Delivery Method <DO Louie Perry Filed: 05/08/24 09:22> Orders Ordered: Discontinued Medications Ondansetron HCl (Ondansetron 4 Mg/2 Ml Inj) 4 mg IV NOW PRN PRN Reason: Nausea And Vomiting Ondansetron HCl (Ondansetron 4 Mg Odt) 4 mg PO NOW PRN PRN Reason: Nausea And Vomiting Vital Signs Vital signs: Vital Signs - 8 hr 05/07/24 10:52 05/07/24 11:39 05/07/24 11:41 Temperature 97.8 F Pulse Rate 80 85 Respiratory Rate 16 Blood Pressure 168/94 H 137/63 Pulse Oximetry 98 97 Oxygen Delivery Method Room Air 05/07/24 11:41 05/07/24 12:00 05/07/24 12:30 Temperature Pulse Rate 85 83 83 Respiratory Rate Blood Pressure Pulse Oximetry 98 97 97 Oxygen Delivery Method MDM - Abdominal Pain <Alayna Reis PA-C - Last Filed: 05/07/24 13:30> Lab Data Lab results narrative: Urinalysis showed leukocytes, no blood. It was sent for microscopy which does show 10-30 urine bacteria, culture is pending.. White blood cell count of 13. She is afebrile. Chemistries within normal limits. 05/07/24 11:08 05/07/24 11:08 Labs: Lab Results 05/07/24 05/07/24 Range/Units 10:57 11:08 WBC 13.0 H (4.5-11.0) X10^3/uL RBC 4.89 (4.0-5.2) X10^6/uL Hgb 14.2 (12.0-16.0) g/dL Hct 42.7 (36-46) % MCV 87.3 (80-100) fL MCH 29.0 (26-34) PG MCHC 33.3 (30-36) % RDW 13.0 (11.6-14.8) % Plt Count 385 (150-400) X10^3/uL Neut % (Auto) 65.8 (50-75) % Lymph % (Auto) 27.1 (25-40) % Lipscomb % (Auto) 5.3 (3-14) % Eos % (Auto) 1.4 L (2-4) % Baso % (Auto) 0.4 (0-2) % Neut # (Auto) 8600 H (7198-6202) /uL Lymph # (Auto) 3500 (0040-8650) /uL Lipscomb # (Auto) 700 (0-900) /uL Eos # (Auto) 200 (0-450) /uL Baso # (Auto) 100 (0-100) /uL Sodium 136 L (137-145) mmol/L Potassium 4.1 (3.4-5.1) mmol/L Chloride 107 (98-107) mmol/L Carbon Dioxide 20 L (22-32) mmol/L BUN 12 (7-17) mg/dL Creatinine 0.61 (0.52-1.04) mg/dL Estimated GFR > 60 (>60) mL/min BUN/Creatinine Ratio 19.7 (6-22) Glucose 109 H (70-100) mg/dL Calcium 9.0 (8.4-10.2) mg/dL Total Bilirubin 0.7 (0.2-1.3) mg/dL AST 27 (14-36) IU/L ALT 27 (<35) IU/L Alkaline Phosphatase 100 (38-126) U/L Total Protein 7.4 (6.3-8.2) g/dL Albumin 4.4 (3.5-5.0) g/dL Globulin 3.0 (1.7-4.1) g/dL Albumin/Globulin Ratio 1.5 (1.0-2.8) Lipase 47 (23-300) U/L Urine RBC 0-1/hpf (0-5/HPF) Urine WBC 0-1/hpf (0-5/HPF) Ur Squamous Epith Cells 1-5 /hpf (0-5/HPF) Urine Bacteria Moderate (10-30) H (None) Urine Mucus 1+ H (Negative) Ur Culture Indicated? Specimen cultured Vol Urine Centrifuged 10ml (spun) Point of care testing: Point of Care Testing Stool Occult Blood Negative Urine Dip Bedside Urine Glucose Negative Bedside Urine Bilirubin - Negative Bedside Urine Ketone - Negative Urine Specific [place] 1.02 Bedside Urine Occult Blood - Negative Bedside Urine pH 6.0 Bedside Urine Protein +/- 15 Bedside Urine Urobilinogen - Negative Bedside Urine Nitrite - Negative Bedside Urine Leukocytes +/- 15 Esterase Imaging Data Abdominal x-ray: My Impression: Deferred to radiologist's interpretation below. Radiologist's Impression: PROCEDURE: XR ACUTE ABDOMEN SERIES INDICATIONS: pain after BM TECHNIQUE: One view chest and two views of the abdomen were acquired. COMPARISON: None. Findings and impression: Chest: Low lung volumes. No dense airspace disease or pleural effusions. No free air under hemidiaphragms. Normal heart size. Unremarkable osseous structures. Abdomen: Moderate fecal loading. No specific signs for bowel obstruction by radiography. No suspicious soft tissue calcifications. Unremarkable osseous structures. Consider CT if there is further concern for acute abdomen. Dictated by: Nima Duran M.D. on 05/07/2024 at 11:04 Approved by: Nima Duran M.D. on 05/07/2024 at 11:05 [facility] [place] Narrative Medical decision making narrative: She is currently pain-free, her urine did show bacteria it was sent for culture, she remains afebrile with normal vital signs rechecked her blood pressure it has normalized 137/63 overall she feels quite good. No clinical findings to suggest an acute abdominal processes this point, x-rays did show some fecal loading. This could have been the source of her pain with motility. No acute findings on examination at this point. Her rectal exam was negative, guaiac negative, soft brown stool in the vault in the form of a large plug. Nontender exam. We will cover her with an antimicrobial pending her urine culture. Ciprofloxacin to cover her urinary tract as well as her colon. Differential includes diverticulitis although CT scan was not performed today as I am trying to reduce her radiation exposure and she is still pain-free. Slight bump in her white count which can be inflammatory versus urinary tract infection. Red flag warning signs are reviewed in detail. She will follow up with her PCP, strict emergency room instructions given to return immediately for pain recurs. She will keep her activity light, and diet clear for the remainder of the day. <Yumiko Marcano, DO - Last Filed: 05/08/24 09:22> Lab Data Labs: Lab Results 05/07/24 05/07/24 Range/Units 10:57 11:08 WBC 13.0 H (4.5-11.0) X10^3/uL RBC 4.89 (4.0-5.2) X10^6/uL Hgb 14.2 (12.0-16.0) g/dL Hct 42.7 (36-46) % MCV 87.3 (80-100) fL MCH 29.0 (26-34) PG MCHC 33.3 (30-36) % RDW 13.0 (11.6-14.8) % Plt Count 385 (150-400) X10^3/uL Neut % (Auto) 65.8 (50-75) % Lymph % (Auto) 27.1 (25-40) % Lipscomb % (Auto) 5.3 (3-14) % Eos % (Auto) 1.4 L (2-4) % Baso % (Auto) 0.4 (0-2) % Neut # (Auto) 8600 H (5638-7585) /uL Lymph # (Auto) 3500 (1054-0515) /uL [place]comb # (Auto) 700 (0-900) /uL Eos # (Auto) 200 (0-450) /uL Baso # (Auto) 100 (0-100) /uL Sodium 136 L (137-145) mmol/L Potassium 4.1 (3.4-5.1) mmol/L Chloride 107 (98-107) mmol/L Carbon Dioxide 20 L (22-32) mmol/L BUN 12 (7-17) mg/dL Creatinine 0.61 (0.52-1.04) mg/dL Estimated GFR > 60 (>60) mL/min BUN/Creatinine Ratio 19.7 (6-22) Glucose 109 H (70-100) mg/dL Calcium 9.0 (8.4-10.2) mg/dL Total Bilirubin 0.7 (0.2-1.3) mg/dL AST 27 (14-36) IU/L ALT 27 (<35) IU/L Alkaline Phosphatase 100 (38-126) U/L Total Protein 7.4 (6.3-8.2) g/dL Albumin 4.4 (3.5-5.0) g/dL Globulin 3.0 (1.7-4.1) g/dL Albumin/Globulin Ratio 1.5 (1.0-2.8) Lipase 47 (23-300) U/L Urine RBC 0-1/hpf (0-5/HPF) Urine WBC 0-1/hpf (0-5/HPF) Ur Squamous Epith Cells 1-5 /hpf (0-5/HPF) Urine Bacteria Moderate (10-30) H (None) Urine Mucus 1+ H (Negative) Ur Culture Indicated? Specimen cultured Vol Urine Centrifuged 10ml (spun) Point of care testing: Point of Care Testing Stool Occult Blood Negative Urine Dip Bedside Urine Glucose Negative Bedside Urine Bilirubin - Negative Bedside Urine Ketone - Negative Urine Specific [place] 1.02 Bedside Urine Occult Blood - Negative Bedside Urine pH 6.0 Bedside Urine Protein +/- 15 Bedside Urine Urobilinogen - Negative Bedside Urine Nitrite - Negative Bedside Urine Leukocytes +/- 15 Esterase Discharge Plan Departure Patient Disposition: Home Clinical Impression: UTI (urinary tract infection) Qualifiers: Urinary tract infection type: site unspecified Hematuria presence: without hematuria Qualified Code(s): N39.0 - Urinary tract infection, site not specified Abdominal pain Qualifiers: Abdominal location: left lower quadrant Qualified Code(s): R10.32 - Left lower quadrant pain Activity Restrictions/Additional Instructions: Your x-rays showed some retained stool, and your urine test did show some bacteria so I believe you have an early UTI. I have prescribed ciprofloxacin antibiotic a also cover your colon lining in case there is some inflammation there. Your pain did go away but it could recur and if it does and it becomes severe then please do not hesitate to return here. Your blood work was normal except for a slight bump in your white blood cell count of 13 which can indicate infection or inflammation. I do recommend that she follow up with your PCP if your symptoms do recur. I have also prescribed additional Zofran if you do experience any nausea. Try to keep your diet light today clear liquids would be ideal to allow that stool to pass, advance as tolerated with bland foods. I hope you have a wonderful new year and again please do not hesitate to return if anything changes or worsens. Prescriptions: New ciprofloxacin HCl 500 mg tablet 500 mg PO BID Qty: 14 0RF ondansetron 4 mg tablet,disintegrating 4 mg PO Q8H PRN (Reason: nausea and vomiting) Qty: 20 0RF No Action rosuvastatin 10 mg tablet 10 mg PO ONCE PM lisinopril 40 mg tablet 40 mg PO DAILY omeprazole 20 mg capsule,delayed release(DR/EC) 20 mg PO DAILY alprazolam 0.5 mg tablet PO metoprolol succinate 50 mg tablet extended release 24 hr 50 mg PO DAILY venlafaxine 37.5 mg capsule,extended release 24hr 37.5 mg PO BID doxycycline hyclate 100 mg capsule 100 mg PO BID Qty: 10 0RF Referrals: Beckie Pryor DO [Primary Care Provider] - Stand Alone Forms: Patient Portal/API/Survey ED Sign-out <Yumiko Marcano DO - Last Filed: 05/08/24 09:22> Cosign ED Attending Cosignature Attestation: I was available for consultation.
[2024-05-07 11:56] LABS: RBC Urine 0-1/HPF (0-5/HPF); Urine Volume 10mL (spun)
[2024-05-07 11:57] LABS: Bacteria Urine Moderate (10-30); Culture Indicated Urine Specimen Cultured; Mucus Urine 1+ (Negative); Squamous Epithelial Cell Urine 1-5 /HPF (0-5/HPF); WBC Urine 0-1/HPF (0-5/HPF)
[2024-05-07 12:00] VITALS: PULSE 83; O2SAT 97
[2024-05-07 12:30] VITALS: PULSE 83; O2SAT 97
== END 2024-05-07 12:42 | disposition home or self-care (01) ==
PROVIDERS: Emergency Medicine; Emergency Provider Physician Assistant Medical; PCP Family Medicine
DX: N39.0 Urinary tract infection, site not specified (principal); R10.32 Left lower quadrant pain
CPT/HCPCS: 36415; 74022; 80053; 81003; 81015; 82272; 83690; 85025; 87086; 99283; 99284